=== PATIENT | female | born 1990 | race Two or more races ===

== ENCOUNTER 2017-05-17 09:14 | Emergency (ER) | payer OTHER ==
[~2017-05-17] VITALS: Ht 160 cm; Wt 46.7 kg
[2017-05-17 09:14] VITALS: BP 105/67
== END 2017-05-17 09:54 | disposition home or self-care (01) ==
LOC: ER 09:16
DX: H66.91 Otitis media, unspecified, right ear (principal); H60.91 Unspecified otitis externa, right ear
CPT/HCPCS: 99283; A4606; Z7610

== ENCOUNTER 2021-06-04 15:06 | Emergency (ER) | payer OTHER ==
[~2021-06-04] VITALS: Ht 162.6 cm; Wt 49.4 kg
--- NOTE | 2021-06-04 15:10 | NUR ---
PT C/O NOSE PAIN X3 DAYS. A&OX4. VITAL SIGNS WITHIN NORMAL LIMITS.
[2021-06-04 15:14] VITALS: BP 108/57
[2021-06-04] MEDS ORDERED: IBUPROFEN 600 MG TABLET PO ONE (15:30)
[2021-06-04] MEDS ORDERED: IBUPROFEN 600 MG TABLET ONE (15:31)
[2021-06-04] MEDS ORDERED: IBUP-1955 PO (16:46)
--- NOTE | 2021-06-04 17:15 | NUR ---
VITAL SIGNS WITHIN NORMAL LIMIT. PT WAS GIVEN DISCHARGE INSTRUCTIONS AND PRESCRIPTION.
== END 2021-06-04 16:48 | disposition home or self-care (01) ==
LOC: ER 15:10
DX: S02.2XXA Fracture of nasal bones, initial encounter for closed fracture (principal); W50.0XXA Accidental hit or strike by another person, initial encounter; Y93.89 Activity, other specified; Y92.89 Other specified places as the place of occurrence of the external cause; Y99.8 Other external cause status
CPT/HCPCS: 70160-TC